=== PATIENT | male | born 1975 | race Two or more races ===

== ENCOUNTER 2024-01-23 10:56 | Inpatient (IN) | payer OTHER ==
[2024-01-23] VITALS (10 sets, daily range): BP systolic 144–168; BP diastolic 84–111; PULSE 103–113; RESP 18; TEMP 97.7–98.8; O2SAT 96
[~2024-01-23] VITALS: Ht 177.8 cm; Wt 103.0 kg
[2024-01-23] MEDS ORDERED: ACET-3217 PO (11:09)
[2024-01-23] MEDS ORDERED: DIPH-1164 PO (11:09)
[2024-01-23] MEDS ORDERED: ALBU2.5V39 NEB (11:09)
[2024-01-23 12:05] LABS: BASOPHILS % (AUTO) 0.4 % (0.0-2.0); EOSINOPHILS % (AUTO) 1.6 % (1.0-6.0); HEMATOCRIT 25.8 % (41-53); HEMOGLOBIN 8.7 g/dL (13.5-17.5); LYMPHOCYTES % (AUTO) 11.4 % (22.0-44.0); MEAN CORPUSCULAR HEMOGLOBIN 28.9 pg (26.0-34.0); MEAN CORPUSCULAR HGB CONC 33.9 G/dL (31.0-37.0); MEAN CORPUSCULAR VOLUME 85 fL (80-100); MONOCYTES # (AUTO) 0.8 K/uL (0.1-1.0); MONOCYTES % (AUTO) 8.9 % (2.0-9.0); NEUTROPHILS # (AUTO) 7.2 K/uL (1.8-7.7); NEUTROPHILS % (AUTO) 77.7 % (40.0-70.0); PLATELET COUNT (AUTO) 184 K/uL (150-450); RED BLOOD CELL COUNT(AUTO) 3.03 MIL/uL (4.50-5.90); RED CELL DISTRIBUTION WIDTH 14.7 % (11.5-14.5); WHITE BLOOD COUNT (AUTO) 9.2 K/uL (4.5-11.0)
[2024-01-23 12:22] LABS: CALCIUM, TOTAL 8.7 mg/dL (8.8-10.5); CREATININE 11.54 mg/dL (0.60-1.30); POTASSIUM 4.5 mmol/L (3.5-5.1)
[2024-01-23 12:47] LABS: TROPONIN I-HIGH SENSITIVITY 96 ng/L (<76)
[2024-01-23] MEDS ORDERED: ONDANSETRON HCL 4 MG/2 ML VIAL IVP PRN (14:30)
[2024-01-23] MEDS ORDERED: ACET-2247 PO (14:30)
[2024-01-23] MEDS ORDERED: MAGNESIUM HYDROXIDE SUSPENSION 30 ML UDCUP PO PRN (14:30)
[2024-01-23] MEDS ORDERED: ACETAMINOPHEN 325 MG TABLET PO PRN (14:30)
[2024-01-23] MEDS ORDERED: ZOLPIDEM TARTRATE 10 MG TABLET PO PRN (14:30)
[2024-01-23] MEDS ORDERED: DIPH-1243 PO (14:30)
[2024-01-23] MEDS ORDERED: IPRATROPIUM BROMIDE 0.5 MG/2.5 ML NEB SOLUTION NEB PRN (14:30)
[2024-01-23 14:57] LABS: TROPONIN I-HIGH SENSITIVITY 118 ng/L (<76)
[2024-01-23] MEDS: ASPIRIN 81 MG CHEWABLE TABLET PO ONE (15:18)
[2024-01-23] MEDS: NITROGLYCERIN 2% (1 GM=INCH) OINTMENT PACKET TP SCH (18:00)
[2024-01-23] MEDS ORDERED: HydrALAZINE HCL 20 MG/ML VIAL IVP PRN (20:15)
[2024-01-23] MEDS: HydrOXYzine HCL 25 MG TABLET PO ONE (20:52)
[2024-01-23] MEDS: METOPROLOL TARTRATE 25 MG TABLET PO SCH (20:53)
[2024-01-23] MEDS: HEPARIN SODIUM,PORCINE 1,000 UNITS/ML VIAL IVCATH ONE ×2 (22:15→22:16)
[2024-01-23] MEDS: DOCUSATE SODIUM 100 MG CAPSULE PO SCH (22:15)
[2024-01-23] MEDS ORDERED: HEPARIN SODIUM,PORCINE 1,000 UNITS/ML VIAL ONE (23:17)
[2024-01-24 00:09] VITALS: BP 142/87; PULSE 105; RESP 18; TEMP 98.3; O2SAT 97
[2024-01-24 05:47] VITALS: BP 126/73; PULSE 103; RESP 16; TEMP 98; O2SAT 99
[2024-01-24 07:06] LABS: BASOPHILS % (AUTO) 0.3 % (0.0-2.0); EOSINOPHILS % (AUTO) 2.6 % (1.0-6.0); HEMATOCRIT 25.3 % (41-53); HEMOGLOBIN 8.6 g/dL (13.5-17.5); LYMPHOCYTES # (AUTO) 1.3 K/uL (1.0-4.8); LYMPHOCYTES % (AUTO) 17.1 % (22.0-44.0); MEAN CORPUSCULAR HEMOGLOBIN 29.1 pg (26.0-34.0); MEAN CORPUSCULAR HGB CONC 34.1 G/dL (31.0-37.0); MEAN CORPUSCULAR VOLUME 85 fL (80-100); MONOCYTES # (AUTO) 0.8 K/uL (0.1-1.0); MONOCYTES % (AUTO) 10.4 % (2.0-9.0); NEUTROPHILS # (AUTO) 5.5 K/uL (1.8-7.7); NEUTROPHILS % (AUTO) 69.6 % (40.0-70.0); PLATELET COUNT (AUTO) 199 K/uL (150-450); RED BLOOD CELL COUNT(AUTO) 2.97 MIL/uL (4.50-5.90); RED CELL DISTRIBUTION WIDTH 14.5 % (11.5-14.5); WHITE BLOOD COUNT (AUTO) 7.9 K/uL (4.5-11.0)
[2024-01-24 07:19] LABS: CALCIUM, TOTAL 8.2 mg/dL (8.8-10.5); CHOL/HDL RATIO 4.5 (4.2-7.3); CREATININE 7.2 mg/dL (0.60-1.30); POTASSIUM 3.9 mmol/L (3.5-5.1)
[2024-01-24] MEDS ORDERED: DEXTROSE 50%-WATER 25 GM/50 ML SYRINGE IVP PRN (07:30)
[2024-01-24] MEDS ORDERED: INSULIN LISPRO 100 UNITS/ML SQ PRN (07:30)
[2024-01-24 07:43] LABS: TROPONIN I-HIGH SENSITIVITY 78 ng/L (<76)
[2024-01-24 08:04] VITALS: BP 160/98; PULSE 103; RESP 18; TEMP 98.2; O2SAT 99
[2024-01-24] MEDS: HYDROCODONE/ACETAMINOPHEN 5-325 MG TABLET PO PRN (08:05)
[2024-01-24] MEDS: PANTOPRAZOLE SODIUM 40 MG DR TABLET PO SCH (08:06)
[2024-01-24] MEDS: ASPIRIN 81 MG DR TABLET PO SCH (08:06)
[2024-01-24] MEDS: ATORVASTATIN CALCIUM 10 MG TABLET PO SCH (08:06)
[2024-01-24] MEDS: MORPHINE SULFATE 2 MG/ML SYRINGE IVP PRN (08:31)
[2024-01-24] MEDS ORDERED: ASPIRIN 81 MG CHEWABLE TABLET PO SCH (09:00)
[2024-01-24 11:15] VITALS: BP 146/82; PULSE 90; RESP 19; TEMP 98.1; O2SAT 98
[2024-01-24] MEDS ORDERED: ATOR10TA PO (13:48)
[2024-01-24] MEDS ORDERED: ASPI-1450 PO (13:52)
[2024-01-24] MEDS ORDERED: [UNRECOGNIZED DRUG - CODE] SQ (13:52)
[2024-01-24] MEDS ORDERED: METO25 PO (13:53)
[2024-01-24 15:01] VITALS: BP 144/87; PULSE 95; RESP 19; TEMP 98; O2SAT 99
[2024-01-25 06:45] LABS: GLUCOMETER DEV NAME(LOC) 5N.1D; GLUCOSE,POINT OF CARE 114 MG/DL (70-110)
[2024-01-25] MEDS ORDERED: EPOETIN ALFA 10,000 UNITS/ML VIAL SQ SCH (09:00)
[2024-01-25 20:10] LABS: GLUCOMETER DEV NAME(LOC) 5N.2C; GLUCOSE,POINT OF CARE 103 MG/DL (70-110)
[2024-01-25 20:11] LABS: GLUCOMETER DEV NAME(LOC) 5N.2C; GLUCOSE,POINT OF CARE 138 MG/DL (70-110)
== END 2024-01-24 17:15 | DRG 311 ==
LOC: EMS 10:56 → EDH 14:17 → 5N 16:20
PROVIDERS: ADMIT Hospitalist; ATTEND Hospitalist
PROC: 5A1D70Z Performance of Urinary Filtration, Intermittent, Less than 6 Hours Per Day (ICD-10-PCS; principal; 2024-01-23)
DX: I24.9 Acute ischemic heart disease, unspecified (principal); N18.6 End stage renal disease; I13.2 Hypertensive heart and chronic kidney disease with heart failure and with stage 5 chronic kidney disease, or end stage renal disease; I50.30 Unspecified diastolic (congestive) heart failure; F41.9 Anxiety disorder, unspecified; D63.1 Anemia in chronic kidney disease; E11.22 Type 2 diabetes mellitus with diabetic chronic kidney disease; Z99.2 Dependence on renal dialysis; Z90.49 Acquired absence of other specified parts of digestive tract
CPT/HCPCS: 71045; 80048; 80061; 82962; 84484; 85025; 87340; 90935; 93005; 93306; 99285; J0360; J0885; J1644; J2270; 36415-L1; 36415-TC

== ENCOUNTER 2024-01-25 18:20 | Inpatient (IN) | payer OTHER ==
[~2024-01-25] VITALS: Ht 167.6 cm; Wt 102.7 kg
[~2024-01-25 18:20] MED LIST: ACET-2247 PO; ALBU2.5V39 NEB; ASPI-1450 PO; ATOR10TA PO; DIPH-1243 PO; METO25 PO; [UNRECOGNIZED DRUG - CODE] SQ
[2024-01-25 22:50] LABS: BASOPHILS % (AUTO) 0.5 % (0.0-2.0); EOSINOPHILS % (AUTO) 1.6 % (1.0-6.0); HEMATOCRIT 26.6 % (41-53); HEMOGLOBIN 8.8 g/dL (13.5-17.5); LYMPHOCYTES # (AUTO) 1.6 K/uL (1.0-4.8); LYMPHOCYTES % (AUTO) 18.1 % (22.0-44.0); MEAN CORPUSCULAR HEMOGLOBIN 28.4 pg (26.0-34.0); MEAN CORPUSCULAR HGB CONC 33.3 G/dL (31.0-37.0); MEAN CORPUSCULAR VOLUME 85 fL (80-100); MONOCYTES # (AUTO) 1.1 K/uL (0.1-1.0); MONOCYTES % (AUTO) 12.8 % (2.0-9.0); NEUTROPHILS # (AUTO) 5.8 K/uL (1.8-7.7); PLATELET COUNT (AUTO) 190 K/uL (150-450); RED BLOOD CELL COUNT(AUTO) 3.11 MIL/uL (4.50-5.90); RED CELL DISTRIBUTION WIDTH 15.3 % (11.5-14.5); WHITE BLOOD COUNT (AUTO) 8.6 K/uL (4.5-11.0)
[2024-01-25 22:58] LABS: CALCIUM, TOTAL 8.7 mg/dL (8.8-10.5); CREATININE 11.32 mg/dL (0.60-1.30); POTASSIUM 4.3 mmol/L (3.5-5.1)
[2024-01-26] VITALS (12 sets, daily range): BP systolic 84–157; BP diastolic 54–102; PULSE 80–91; RESP 18–20; TEMP 97.9–98.6; O2SAT 96–98
[2024-01-26] MEDS ORDERED: ACETAMINOPHEN 325 MG TABLET PO PRN (01:30)
[2024-01-26] MEDS ORDERED: MORPHINE SULFATE 2 MG/ML SYRINGE IVP PRN (01:30)
[2024-01-26] MEDS ORDERED: IPRATROPIUM BROMIDE 0.5 MG/2.5 ML NEB SOLUTION NEB PRN (01:30)
[2024-01-26] MEDS ORDERED: ONDANSETRON HCL 4 MG/2 ML VIAL IVP PRN (01:30)
[2024-01-26] MEDS ORDERED: BISACODYL 10 MG RECTAL RECTAL SUPPOSITORY PR PRN (01:30)
[2024-01-26] MEDS ORDERED: OxyCODONE HCL/ACETAMINOPHEN 5-325 MG TABLET PO PRN (01:30)
[2024-01-26] MEDS ORDERED: ALBUTEROL SULFATE 2.5 MG/0.5 ML NEB SOLUTION NEB PRN (01:30)
[2024-01-26] MEDS ORDERED: MAGNESIUM HYDROXIDE SUSPENSION 30 ML UDCUP PO PRN (01:30)
[2024-01-26] MEDS: ZOLPIDEM TARTRATE 5 MG TABLET PO PRN (03:34)
[2024-01-26] MEDS: ATORVASTATIN CALCIUM 10 MG TABLET PO SCH (08:48)
[2024-01-26] MEDS: HEPARIN SODIUM,PORCINE 5,000 UNITS/ML VIAL SQ SCH (08:48)
[2024-01-26] MEDS: ASPIRIN 81 MG CHEWABLE TABLET PO SCH (08:48)
[2024-01-26] MEDS: DOCUSATE SODIUM 100 MG CAPSULE PO SCH (08:48)
[2024-01-26] MEDS: PANTOPRAZOLE SODIUM 40 MG/VIAL IVP SCH (08:48)
[2024-01-26] MEDS: METOPROLOL TARTRATE 25 MG TABLET PO SCH (08:48)
[2024-01-26 10:16] LABS: GLUCOMETER DEV NAME(LOC) 6S.2; GLUCOSE,POINT OF CARE 121 MG/DL (70-110)
[2024-01-26] MEDS ORDERED: HEPARIN SODIUM,PORCINE 1,000 UNITS/ML VIAL IVP ONE (12:00)
[2024-01-26] MEDS ORDERED: SODIUM CHLORIDE 0.9% 1,000 ML ONE (12:23)
[2024-01-26 16:51] LABS: GLUCOMETER DEV NAME(LOC) ERT.5; GLUCOSE,POINT OF CARE 106 MG/DL (70-110)
[2024-01-26 20:16] LABS: GLUCOMETER DEV NAME(LOC) 6S.2; GLUCOSE,POINT OF CARE 122 MG/DL (70-110)
[2024-01-27] MEDS ORDERED: EPOETIN ALFA 10,000 UNITS/ML VIAL SQ SCH (09:00)
== END 2024-01-26 20:28 | DRG 682 ==
LOC: EMS 18:20 → EDH 01-26 → 6S 01-26 06:00
PROVIDERS: ADMIT Hospitalist; ATTEND Hospitalist
PROC: 5A1D70Z Performance of Urinary Filtration, Intermittent, Less than 6 Hours Per Day (ICD-10-PCS; principal; 2024-01-26)
DX: I12.0 Hypertensive chronic kidney disease with stage 5 chronic kidney disease or end stage renal disease (principal); N18.6 End stage renal disease; E78.5 Hyperlipidemia, unspecified; E11.22 Type 2 diabetes mellitus with diabetic chronic kidney disease; F41.9 Anxiety disorder, unspecified; D64.9 Anemia, unspecified; Z99.2 Dependence on renal dialysis; Z90.49 Acquired absence of other specified parts of digestive tract; Z79.82 Long term (current) use of aspirin; Z79.899 Other long term (current) drug therapy
CPT/HCPCS: 80048; 82962; 83880; 85025; 87340; 90935; 99285; C9113; J0885; J1644; J7030